=== PATIENT | male | born 1960 | race Caucasian/White ===

== ENCOUNTER 2019-04-14 15:27 | Emergency (ER) | payer OTHER ==
[~2019-04-14] VITALS: Ht 177.8 cm; Wt 69.4 kg
[2019-04-14] MEDS ORDERED: ADACEL/BOOSTRIX VACCINE (DIPHTH/PERTUSS/ACELL/TETANUS)0.5ML SYR (90715) IM ONE (19:30)
[2019-04-14] MEDS ORDERED: CIPR-249 PO (20:14)
[2019-04-14 20:23] VITALS: BP 142/77
== END 2019-04-14 20:41 | disposition home or self-care (01) ==
LOC: M ED 15:27
DX: S91.331A Puncture wound without foreign body, right foot, initial encounter (principal); W45.0XXA Nail entering through skin, initial encounter; Y92.89 Other specified places as the place of occurrence of the external cause; R73.03 Prediabetes; F17.210 Nicotine dependence, cigarettes, uncomplicated; Z23 Encounter for immunization